=== PATIENT | female | born 1975 | race Caucasian/White ===

== ENCOUNTER → 2016-12-24 | Outpatient (CLI) | payer OTHER | LOC: CIMAGING 09:29 | PROVIDERS: ATTEND Internal Medicine | DX: M79.641 Pain in right hand (principal); M79.642 Pain in left hand | CPT/HCPCS: 73130-PO ==

== ENCOUNTER 2017-05-01 12:25 | Emergency (ER) | payer OTHER ==
[2017-05-01 12:36] VITALS: BP 111/68; PULSE 75; RESP 14; TEMP 97.9; O2SAT 96
--- NOTE | 2017-05-01 12:50 | EDPHY ---
H & P Time Seen by Provider: 05/01/17 12:39 HPI/ROS: CHIEF COMPLAINT: Neck pain HISTORY OF PRESENT ILLNESS: Patient is a 39-year-old female who presents emergency department with neck pain and hand tingling. Her neck pain started 6 months ago. She was noticing bilateral hand tingling. This occurred primarily when she was sleeping when she lifted her hands above her head. She saw her primary care physician, Dr. Moreno, who gave her exercises. Pt also did yoga which did help. However 10 days ago she will wake boarding. After wake boarding she had increasing neck pain. She also has bilateral pain extending into her shoulders. It is worse on her left. She has mild tingling in the left hand. She has no weakness. She is still able to range her neck. No fevers or chills. REVIEW OF SYSTEMS: My complete review of systems is negative except as mentioned in the HPI. Past Medical/Surgical History: Includes Raynaud's syndrome, low back pain with surgery, IUD Past surgical history: Low back surgery Social history: The patient does not smoke. Smoking Status: Former smoker Physical Exam: Vitals noted GENERAL: Well-appearing, in no acute distress, alert. HEENT: Eyes normal to inspection, normal pharynx, no signs of dehydration. NECK: No thyromegaly, no lymphadenopathy, supple. No spinal tenderness palpation. RESPIRATORY: Clear to auscultation bilaterally, no rales, rhonchi or wheezing. CVS: Regular rate and rhythm, no rubs, murmurs, or gallops. ABDOMEN: Soft, nontender, nondistended, no organomegaly. BACK: Normal to inspection, no CVA tenderness. SKIN: Normal color, no rash, warm, dry. No pallor. EXTREMITIES: No pedal edema, no joint swelling. No shoulder tenderness palpation. No discoloration. Normal upper extremity strength and sensation. NEURO/PSYCH: Alert and oriented, normal mood and affect, normal motor sensory exam. No obvious cranial nerve deficit. Constitutional: Initial Vital Signs Temperature (C) 36.6 C 05/01/17 12:27 Heart Rate 75 05/01/17 12:27 Respiratory Rate 14 05/01/17 12:27 Blood Pressure 111/68 05/01/17 12:27 O2 Sat (%) 96 05/01/17 12:27 O2 Delivery Mode Room Air Allergies/Adverse Reactions: No Known Allergies Allergy (Verified 05/01/17 12:36) Home Medications: Medication Instructions Recorded Miscellaneous Medical Supply [NO 1 ea MISC AD 10/12/12 HOME MEDS] CYCLOBENZAPRINE HCL [Flexeril] 5 mg PO TID PRN #15 tab 05/29/15 Hydrocodone/APAP 5/325 [Bison 1 tab PO HS PRN #10 tab 05/29/15 5/325 (*)] Cyclobenzaprine [Flexeril] 10 mg PO TID #15 tab 05/01/17 Hydrocodone/APAP 5/325 [Bison 1 - 2 tab PO Q4 #13 tab 05/01/17 5/325 (RX)] predniSONE 20 mg PO DAILY 4 Days 05/01/17 Medical Decision Making ED Course/Re-evaluation: In the emergency department I discussed possible etiologies with the patient. I answered all her questions. The patient will follow up with her previous surgeon Dr. Hayes to evaluate her back. She will also follow up with the primary care physician. She was given warnings prior to leaving. She will return with worsening symptoms. She was given a prescription of prednisone Flexeril and Vicodin. Differential Diagnosis: My differential includes but is not limited to neck pain, back pain, disc herniation, spinal stenosis, thoracic outlet syndrome Departure - Departure Disposition: Home, Routine, Self-Care Clinical Impression: Neck pain Condition: Good Instructions: Neck Pain (ED) Additional Instructions: Return with increasing weakness, numbness, fever or any other concerns. Referrals: Timi Moreno MD [Primary Care Provider] - 3-4 days, if not improved Lenora Hayes MD [Medical Doctor] - 5-7 days, call for appt. Prescriptions: Cyclobenzaprine [Flexeril] 10 mg PO TID #15 tab Hydrocodone/APAP 5/325 [Bison 5/325 (RX)] 1 - 2 tab PO Q4 #13 tab predniSONE 20 mg PO DAILY 4 Days
[2017-05-01] MEDS ORDERED: predniSONE 20 MG TAB PO ONE (12:52)
== END 2017-05-01 13:08 | disposition home or self-care (01) ==
LOC: CED 12:25
DX: M54.2 Cervicalgia (principal); Z87.891 Personal history of nicotine dependence